=== PATIENT | male | born 1970 | race Caucasian/White ===

== ENCOUNTER 2016-09-07 14:41 | Emergency (ER) | payer BC ==
[2016-09-07 14:48] VITALS: BP 114/87; PULSE 81; TEMP 98.1; BMI 29.8
[2016-09-07] MEDS ORDERED: IBUPROFEN 600 MG TABLET (FP) PO ONE ×2 (15:12→15:17)
--- NOTE | 2016-09-07 15:12 | PDOC ---
History of Present Illness - General Chief Complaint: Pain, Acute Stated Complaint: SHOULDER PAIN Time Seen by Provider: 09/07/16 15:05 History Source: Patient Exam Limitations: No Limitations - History of Present Illness Initial Comments: 09/07/16 15:18 CHIEF COMPLAINT:Right shoulder pain HISTORY OF PRESENT ILLNESS: Patient is a 46 y/o male with no significant medical history present with right shoulder pain. 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 Denies any injury. Pain x 1 week. Occurred: reports: last week Severity: reports: moderate Upper Extremity Pain Location: right: shoulder Method of Injury: reports: unknown Past History - Past Medical History Allergies/Adverse Reactions: Allergies Allergy/AdvReac Type Severity Reaction Status Date / Time No Known Allergies Allergy Verified 09/07/16 14:48 Home Medications: Ambulatory Orders Ibuprofen [Motrin -] 600 mg PO TID #21 tablet 09/07/16 Oxycodone HCl/Acetaminophen [Percocet 5-325 mg Tablet] 1 tab PO Q4H #20 tablet MDD 12 09/07/16 Thyroid Disease: No - Psycho/Social/Smoking Cessation Hx Anxiety: No Suicidal Ideation: No Smoking History: Never smoked Have you smoked in the past 12 months: No Information on smoking cessation initiated: No Hx Alcohol Use: No Drug/Substance Use Hx: No Substance Use Type: None Review of Systems - Review of Systems Constitutional: No: Symptoms Reported HEENTM: No: Symptoms Reported Respiratory: No: Symptoms reported Cardiac (ROS): No: Symptoms Reported ABD/GI: No: Symptoms Reported Musculoskeletal: Yes: Joint Pain. No: Joint Swelling, Muscle Pain, Muscle Weakness, Joint Stiffness Integumentary: No: Symptoms Reported, Bruising, Erythema Neurological: No: Numbness, Paresthesia, Tingling, Tremors All Other Systems: Reviewed and Negative *Physical Exam - Vital Signs Last Vital Signs Temp Pulse Resp BP Pulse Ox 98.1 F 81 18 114/87 100 09/07/16 14:45 09/07/16 14:45 09/07/16 14:45 09/07/16 14:45 09/07/16 14:45 - Physical Exam General Appearance: Yes: Appropriately Dressed. No: Apparent Distress Neck: negative: Tender lateral, Tender midline Respiratory/Chest: positive: Lungs Clear, Normal Breath Sounds. negative: Respiratory Distress, Accessory Muscle Use Cardiovascular: positive: Regular Rhythm, Regular Rate Musculoskeletal: positive: Decreased Range of Motion (right shoulder, limited passive ROM, Decreased strength or pain on resisted testing, unable to lift the dorsum of the hand off back. ) Extremity: positive: Normal Inspection, Normal Range of Motion, Tender (right lateral shoulder, ) Integumentary: positive: Normal Color, Dry. negative: Erythema, Swelling, Ecchymosis, Bruising Neurologic: positive: Alert, Normal Mood/Affect Medical Decision Making - Medical Decision Making 09/07/16 15:33 A/P : right shoulder/rotator cuff injury. Xray arm sling motrin 09/07/16 15:53 X-rays negative for acute fracture dislocation, pain highly suspicious for rotator cuff injury will need to follow-up with orthopedics. Pain is 10 out of 10 with the see patient on Percocet and Motrin patient appears to be in severe pain. Arm sling, pain medication. Motrin while in ER, drove to ER. I discussed the physical exam findings, ancillary test results and final diagnoses with the patient. I answered all of the patient's questions. The patient was satisfied with the care received and felt comfortable with the discharge plan and treatment plan. The patient will call to arrange follow-up and will return to the Emergency Department with any new, persistent or worsening symptoms. *DC/Admit/Observation/Transfer Diagnosis at time of Disposition: Shoulder pain Qualifiers: Chronicity: acute Laterality: right Qualified Code(s): M25.511 - Pain in right shoulder - Discharge Dispostion Disposition: HOME Condition at time of disposition: Good Admit: No - Prescriptions Prescriptions: Ibuprofen [Motrin -] 600 mg PO TID #21 tablet Oxycodone HCl/Acetaminophen [Percocet 5-325 mg Tablet] 1 tab PO Q4H #20 tablet MDD 12 - Referrals Referrals: Robert Whelan MD [Staff Physician] - - Patient Instructions Printed Discharge Instructions: DI for Shoulder Pain Additional Instructions: 1. Please return to the emergency department with any redness, swelling, increased pain, or any other concerns. 2. Keep splint on. 3. Please follow up in the office of Dr. Whelan within a week if pain persists. 4. No weightbearing 5. Ice and elevate when at rest. 6. Motrin for pain, percocet for severe pain - Post Discharge Activity Work/School Note: Back to Work
== END 2016-09-07 16:05 | disposition home or self-care (01) ==
LOC: JERFT 14:41
DX: M25.511 Pain in right shoulder (principal)
CPT/HCPCS: 73030-TC-RT; 99281-25